=== PATIENT | female | born 1990 | race Two or more races ===

== ENCOUNTER 2019-12-23 21:50 | Inpatient (IN) | payer BC ==
[2019-12-23] MEDS ORDERED: DEXTROSE 5%-LACTATED RINGERS 1,000 ML IV SCH (22:45)
[2019-12-24] MEDS ORDERED: PROMETHAZINE HCL 25 MG/1 ML VIAL ONE (00:51)
[2019-12-24] MEDS ORDERED: BUTORPHANOL TARTRATE 1 MG/ML VIAL ONE ×2 (00:51)
[2019-12-24] MEDS ORDERED: BUTORPHANOL TARTRATE 1 MG/ML VIAL IVPB ONE (01:00)
[2019-12-24] MEDS ORDERED: PROMETHAZINE HCL 25 MG/1 ML VIAL IVPB ONE (01:00)
[2019-12-24 01:09] LABS: BASO % 0.3 % (0-2.0); EOS % 0.4 % (0-4.5); HEMATOCRIT 37.3 % (32.4-45.2); HEMOGLOBIN 12.6 GM/dL (10.7-15.3); LYMPH % 13.4 % (8-40); MCH 29.2 pg (25.7-33.7); MCHC 33.8 g/dl (32.0-36.0); MEAN CELL VOLUME 86.5 fl (80-96); MEAN PLT VOLUME 7.8 fl (7.5-11.1); MONO % 9.1 % (3.8-10.2); NEUT % 76.8 % (42.8-82.8); PLATELET COUNT 286 K/MM3 (134-434); RBC 4.32 M/mm3 (3.60-5.2); RDW 13.9 % (11.6-15.6); WHITE BLOOD COUNT 15.9 K/mm3 (4.0-10.0)
[2019-12-24 01:23] LABS: BLOOD UREA NITROGEN 7.2 mg/dL (7-18); CALCIUM 8.8 mg/dL (8.5-10.1); CREATININE 0.5 mg/dL (0.55-1.3)
[2019-12-24 01:26] LABS: INR 0.94 (0.83-1.09); PROTHROMBIN TIME (PATIENT) 11.1 SEC (9.7-13.0)
[2019-12-24 01:29] LABS: ACTIVATED PTT 26.9 SECONDS (25.2-36.5)
[2019-12-24 01:56] VITALS: BMI 28.1
[2019-12-24] MEDS ORDERED: ELECTROLYTE-148 SOLN 500 ML IV ONE (03:53)
[2019-12-24] MEDS ORDERED: CITRIC ACID/SODIUM CITRATE 30 ML UNIT-DOSE CUP PO ONE ×2 (03:53)
--- NOTE | 2019-12-24 04:01 | HP ---
Past Medical History - Admission Chief Complaint: Labor pain History of Present Illness: 29 yo @ 37.4 weeks gestation, EDC 01/09/20, presents to L&D c/o labor pain. She had one prior in [facility] but there is no scar documentation. She was initially scheduled for repeat on 01/03/20. Decision made for admission because of contractions pain. Upon admission she was 2cm dilated. She's pre op for repeat . History Source: Patient Limitations to Obtaining History: No Limitations - Past Medical History ...: 4 ...Para: 1 ...Term: 1 ...: 0 ...Spon : 0 ...Induced : 2 ...Multiple Gestation: 0 ...LMP: 04/04/19 ...EDC by Anjali: 01/09/20 - Past Surgical History Past Surgical History: Yes: Hx Myomectomy: No Hx Transabdominal Cerclage: No - Smoking History Smoking history: Never smoked Have you smoked in the past 12 months: No - Alcohol/Substance Use Hx Alcohol Use: No - Social History Usual Living Arrangement: Yes: With Spouse History of Recent Travel: No Home Medications - Allergies Allergies/Adverse Reactions: Allergies Allergy/AdvReac Type Severity Reaction Status Date / Time No Known Allergies Allergy Verified 11/16/19 13:39 - Home Medications Home Medications: Ambulatory Orders Clotrimazole [Antifungal] 14 gm TP PCHS #1 cream..g. 11/16/19 Pnv No.95/Ferrous Fum/Folic AC [ Formula] 1 each PO DAILY 11/16/19 Family Medical History Family History: Unremarkable Review of Systems - Review of Systems Constitutional: reports: No Symptoms Eyes: reports: No Symptoms HENT: reports: No Symptoms Neck: reports: No Symptoms Cardiovascular: reports: No Symptoms Respiratory: reports: No Symptoms Gastrointestinal: reports: No Symptoms Genitourinary: reports: No Symptoms Breasts: reports: No Symptoms Reported Musculoskeletal: reports: No Symptoms Integumentary: reports: No Symptoms Neurological: reports: No Symptoms Endocrine: reports: No Symptoms Psychiatric: reports: No Symptoms Pain Intensity: 4 Physical Exam - Maternity Vital Signs: Vital Signs Temperature 98.2 F 12/24/19 01:00 Pulse Rate 78 12/24/19 01:00 Respiratory Rate 20 20 01:00 Blood Pressure 124/75 12/24/19 01:00 O2 Sat by Pulse Oximetry (%) Constitutional: Yes: Well Nourished Eyes: Yes: Conjunctiva Clear HENT: Yes: Atraumatic Neck: Yes: Supple Cardiovascular: Yes: Regular Rate and Rhythm Lungs: Clear to auscultation Breast(s): Yes: WNL - Abdominal Exam/OB Number of Fetuses: Single Presentation: Vertex Contractions: Yes Regularity: Regular Intensity: Mild/Mod - Vaginal Exam/OB Dilatation (cm): 2 Effacement (%): 80 Amniotic Membrane Status: Intact Presentation: Vertex/Position Station: -2 - Physical Exam Musculoskeletal: Yes: WNL Extremities: Yes: WNL Integumentary: Yes: WNL ...Motor Strength: WNL Psychiatric: Yes: Alert, Oriented - Labs Lab Results: CBC, BMP 12/24/19 00:30 12/24/19 00:30 Problem List - Problems (1) 37 weeks gestation of Problems reviewed: Yes Code(s): Z3A.37 - 37 WEEKS GESTATION OF (2) Previous section complicating , antepartum condition or complication Problems reviewed: Yes Code(s): O34.219 - MATERNAL CARE FOR UNSP TYPE SCAR FROM PREVIOUS DEL (3) Pain during labor Problems reviewed: Yes Code(s): O99.89 - OTH DISEASES AND CONDITIONS COMPL PREG/CHLDBRTH; R52 - PAIN, UNSPECIFIED Assessment/Plan 37 weeks gestation Previous in labor Pre op for repeat Consent signed Anesthesia to see patient
[2019-12-24] MEDS ORDERED: morphine SULFATE/PF 0.5 MG/ML (2cc Syringe - QUVA) EP ONE (07:32)
[2019-12-24] MEDS ORDERED: ONDANSETRON 4 MG/2 ML VIAL IVPUSH PRN (07:32)
[2019-12-24] MEDS ORDERED: ceFAZolin SODIUM 1 GM VIAL ONE (07:44)
[2019-12-24] MEDS ORDERED: OXYTOCIN 10 UNITS/ML VIAL ONE ×2 (08:06→08:11)
[2019-12-24] MEDS ORDERED: MIDAZOLAM HCL 2 MG/2 ML SINGLE DOSE VIAL ONE (08:07)
[2019-12-24] MEDS ORDERED: METHYLERGONOVINE MALEATE 0.2 MG/1 ML AMP IM PRN (08:50)
--- NOTE | 2019-12-24 08:53 | OP ---
Operative Note - Note: Operative Date: 12/24/19 Pre-Operative Diagnosis: Previous in labor Operation: Repeat Low Transverse Findings: Baby boy in cephallic position Post-Operative Diagnosis: Same as Pre-op Surgeon: Etta Camargo Building Rental Manager: Steven Peraza Anesthesiologist/MAINTENANCE MACHINIST: Fabian Matias Anesthesia: Spinal Specimens Removed: Placenta Estimated Blood Loss (mls): 600
[2019-12-24] MEDS: IBUPROFEN 800 MG/8 ML IJ IVPB PRN ×2 (10:00→18:10)
[2019-12-24] MEDS: OXYTOCIN 20 UNITS in 0.9% NS 20 UNIT/1,000 ML INFUS.BAG IV SCH (10:00)
[2019-12-24] MEDS: PRENATAL VITAMINS W/ FOLIC ACID TABLET (FP) PO SCH (10:20)
[2019-12-24] MEDS: FERROUS SO4 325 MG TABLET (FP) PO SCH ×2 (10:21→22:32)
[2019-12-25] MEDS: IBUPROFEN 800 MG/8 ML IJ IVPB PRN (04:35)
[2019-12-25] MEDS ORDERED: BISACODYL 10 MG SUPP.RECT RC PRN (08:50)
--- NOTE | 2019-12-25 09:25 | PN ---
Progress Note (short form) - Note Progress Note: POD1 s/p csection with epidural and DM. Pt is doing well - able to ambulate, no [place], no back pain, pain is well controlled. No anesthetic issues/ complications noted.
[2019-12-25] MEDS ORDERED: DIPHTH,PERTUSS(ACELL),TET 0.5 ML DISP.SYRIN IM ONE (10:00)
[2019-12-25] MEDS: PRENATAL VITAMINS W/ FOLIC ACID TABLET (FP) PO SCH (10:01)
[2019-12-25] MEDS: FERROUS SO4 325 MG TABLET (FP) PO SCH ×2 (10:01→21:06)
[2019-12-25 10:48] LABS: BASO % 0.3 % (0-2.0); EOS % 0.4 % (0-4.5); HEMATOCRIT 36.3 % (32.4-45.2); HEMOGLOBIN 12.2 GM/dL (10.7-15.3); LYMPH % 11.2 % (8-40); MCH 29.1 pg (25.7-33.7); MCHC 33.7 g/dl (32.0-36.0); MEAN CELL VOLUME 86.2 fl (80-96); MEAN PLT VOLUME 7.6 fl (7.5-11.1); MONO % 7.7 % (3.8-10.2); NEUT % 80.4 % (42.8-82.8); PLATELET COUNT 279 K/MM3 (134-434); RBC 4.21 M/mm3 (3.60-5.2); WHITE BLOOD COUNT 15.3 K/mm3 (4.0-10.0)
[2019-12-25] MEDS: SIMETHICONE 80 MG TAB.CHEW (FP) PO PRN ×3 (12:14→23:03)
[2019-12-25] MEDS: oxyCODONE HCL 5 MG TABLET PO PRN ×3 (12:14→23:03)
[2019-12-25] MEDS: IBUPROFEN 600 MG TABLET (FP) PO PRN ×3 (12:16→23:03)
[2019-12-25] MEDS: OXYTOCIN 20 UNITS in 0.9% NS 20 UNIT/1,000 ML INFUS.BAG IV SCH (19:25)
--- NOTE | 2019-12-25 19:35 | PN ---
Post Progress Note - Subjective Subjective: 29 yo Para 2 status post repeat , seen and evaluated. Doing well Post Day: 1 Type of Delivery: Repeat C/S Vital Signs: Vital Signs Temperature 98.5 F 12/25/19 09:33 Pulse Rate 96 H 12/25/19 09:33 Respiratory Rate 20 12/25/19 09:33 Blood Pressure 117/76 12/25/19 09:33 O2 Sat by Pulse Oximetry (%) 100 12/24/19 10:00 Breast Exam: Yes: Soft Uterus: Yes: Fundus Firm Incision: Yes: Dressing dry and intact Abdomen/GI: Yes: Abdomen soft, Tolerating PO Lochia: Yes: Rubra Lochia, amount: Small Extremities: Yes: Calves non-tender Activity: Ambulating - Labs Labs: CBC WBC 15.3 K/mm3 (4.0-10.0) H 12/25/19 10:02 RBC 4.21 M/mm3 (3.60-5.2) 12/25/19 10:02 Hgb 12.2 GM/dL (10.7-15.3) 12/25/19 10:02 Hct 36.3 % (32.4-45.2) 12/25/19 10:02 MCV 86.2 fl (80-96) 12/25/19 10:02 MCH 29.1 pg (25.7-33.7) 12/25/19 10:02 MCHC 33.7 g/dl (32.0-36.0) 12/25/19 10:02 RDW 14.0 % (11.6-15.6) 12/25/19 10:02 Plt Count 279 K/MM3 (134-434) 12/25/19 10:02 MPV 7.6 fl (7.5-11.1) 12/25/19 10:02 Absolute Neuts (auto) 12.3 K/mm3 (1.5-8.0) H 12/25/19 10:02 Neutrophils % 80.4 % (42.8-82.8) 12/25/19 10:02 Lymphocytes % 11.2 % (8-40) 12/25/19 10:02 Monocytes % 7.7 % (3.8-10.2) 12/25/19 10:02 Eosinophils % 0.4 % (0-4.5) 12/25/19 10:02 Basophils % 0.3 % (0-2.0) 12/25/19 10:02 Nucleated RBC % 0 % (0-0) 12/25/19 10:02 Problem List - Problems (1) 37 weeks gestation of Code(s): Z3A.37 - 37 WEEKS GESTATION OF (2) Previous section complicating , antepartum condition or complication Code(s): O34.219 - MATERNAL CARE FOR UNSP TYPE SCAR FROM PREVIOUS DEL (3) Pain during labor Code(s): O99.89 - OTH DISEASES AND CONDITIONS COMPL PREG/CHLDBRTH; R52 - PAIN, UNSPECIFIED (4) Status post repeat low transverse section Code(s): Z98.891 - HISTORY OF UTERINE SCAR FROM PREVIOUS SURGERY Assessment/Plan Status post repeat Ambulation Analgesia as needed Continue routine post op care
[2019-12-25] MEDS: DOCUSATE SODIUM 100 MG CAPSULE (FP) PO SCH (21:06)
[2019-12-25] MEDS: ACETAMINOPHEN 325 MG TABLET (FP) PO PRN (23:04)
[2019-12-26] MEDS: DOCUSATE SODIUM 100 MG CAPSULE (FP) PO SCH ×3 (06:02→21:03)
[2019-12-26] MEDS: ACETAMINOPHEN 325 MG TABLET (FP) PO PRN ×2 (06:02→21:03)
[2019-12-26] MEDS: SIMETHICONE 80 MG TAB.CHEW (FP) PO PRN ×3 (06:02→21:03)
[2019-12-26] MEDS: oxyCODONE HCL 5 MG TABLET PO PRN ×3 (06:02→21:02)
[2019-12-26] MEDS: IBUPROFEN 600 MG TABLET (FP) PO PRN ×3 (06:02→21:03)
[2019-12-26] MEDS: FERROUS SO4 325 MG TABLET (FP) PO SCH ×2 (09:18→21:03)
[2019-12-26] MEDS: PRENATAL VITAMINS W/ FOLIC ACID TABLET (FP) PO SCH (09:18)
[2019-12-27] MEDS: SIMETHICONE 80 MG TAB.CHEW (FP) PO PRN ×2 (04:59→21:38)
[2019-12-27] MEDS: IBUPROFEN 600 MG TABLET (FP) PO PRN ×3 (04:59→21:37)
[2019-12-27] MEDS: oxyCODONE HCL 5 MG TABLET PO PRN (04:59)
[2019-12-27] MEDS: DOCUSATE SODIUM 100 MG CAPSULE (FP) PO SCH ×3 (05:00→21:37)
[2019-12-27] MEDS: ACETAMINOPHEN 325 MG TABLET (FP) PO PRN ×3 (05:00→21:38)
[2019-12-27 09:15] LABS: BASO % 0.5 % (0-2.0); HEMATOCRIT 37.3 % (32.4-45.2); HEMOGLOBIN 12.5 GM/dL (10.7-15.3); LYMPH % 19.4 % (8-40); MCH 29.3 pg (25.7-33.7); MCHC 33.5 g/dl (32.0-36.0); MEAN CELL VOLUME 87.5 fl (80-96); MEAN PLT VOLUME 7.6 fl (7.5-11.1); MONO % 9.5 % (3.8-10.2); NEUT % 68.6 % (42.8-82.8); PLATELET COUNT 329 K/MM3 (134-434); RBC 4.26 M/mm3 (3.60-5.2); RDW 13.9 % (11.6-15.6); WHITE BLOOD COUNT 10.7 K/mm3 (4.0-10.0)
[2019-12-27] MEDS: FERROUS SO4 325 MG TABLET (FP) PO SCH ×2 (11:06→21:37)
[2019-12-27] MEDS: PRENATAL VITAMINS W/ FOLIC ACID TABLET (FP) PO SCH (11:08)
--- NOTE | 2019-12-27 15:13 | PATH ---
Surgical Pathology Report Patient Name: KIERAN ISAAC [facility]. Rec. #: [id number] /Age/Gender: 1990 (Age: 29) / F Account: [id number] Location: [facility] OBS/HOG TENDER Taken: 12/24/2019 Received: 12/24/2019 Reported: 12/27/2019 Physicians: Etta Camargo M.D. Specimen(s) Received PLACENTA Clinical History , 37.4 weeks in labor Final Diagnosis PLACENTA, SECTION: 413 G THIRD TRIMESTER PLACENTA WITH TRIVASCULAR UMBILICAL CORD, PLACENTAL MEMBRANES WITH FOCAL MILD ACUTE CHORIOAMNIONITIS, AND MECONIUM LADEN MACROPHAGES. Electronically Signed Estrella Esp[place] M.D. Gross Description The specimen is received fresh labeled placenta and is a 413 gram, 22.5 x 17.5 x 2.2 cm. placenta with attached membranes and umbilical cord. The attached membranes are cornejo green, meconium stained, translucent with focal opacities and insert marginally. The umbilical cord measures 36 cm. in length and averages 1.1 cm. in diameter. The cord inserts eccentrically, 5 cm. to the nearest margin. No true knots or strictures are identified. Cut surface of the umbilical cord reveals 3 vessels. The surface is ley green, meconium stained with moderate fibrin deposition and appropriate caliber vessels. The maternal surface is red-brown with focal defects. Sectioning reveals red-brown, spongy parenchyma. No lesions are identified. Service Loss Control Consultant sections are submitted in three cassettes as follows: 1- membrane rolls and umbilical cord; 2-3- full thickness sections of placenta. /12/24/2019 saudi/12/24/2019
--- NOTE | 2019-12-27 15:37 | PN ---
Post Progress Note - Subjective Subjective: 29 yo Para 2, status post repeat , seen and evaluated. Doing well. Post Day: 3 Type of Delivery: Repeat C/S Vital Signs: Vital Signs Temperature 98.5 F 12/26/19 22:00 Pulse Rate 97 H 12/26/19 22:00 Respiratory Rate 18 12/26/19 22:00 Blood Pressure 110/63 12/26/19 22:00 O2 Sat by Pulse Oximetry (%) 100 12/24/19 10:00 Breast Exam: Yes: Soft Uterus: Yes: Fundus Firm Incision: Yes: Sutures intact Abdomen/GI: Yes: Abdomen soft Lochia: Yes: Rubra Lochia, amount: Small Extremities: Yes: Calves non-tender Activity: Ambulating - Labs Labs: CBC WBC 10.7 K/mm3 (4.0-10.0) H 12/27/19 07:33 RBC 4.26 M/mm3 (3.60-5.2) 12/27/19 07:33 Hgb 12.5 GM/dL (10.7-15.3) 12/27/19 07:33 Hct 37.3 % (32.4-45.2) 12/27/19 07:33 MCV 87.5 fl (80-96) 12/27/19 07:33 MCH 29.3 pg (25.7-33.7) 12/27/19 07:33 MCHC 33.5 g/dl (32.0-36.0) 12/27/19 07:33 RDW 13.9 % (11.6-15.6) 12/27/19 07:33 Plt Count 329 K/MM3 (134-434) 12/27/19 07:33 MPV 7.6 fl (7.5-11.1) 12/27/19 07:33 Absolute Neuts (auto) 7.3 K/mm3 (1.5-8.0) 12/27/19 07:33 Neutrophils % 68.6 % (42.8-82.8) 12/27/19 07:33 Lymphocytes % 19.4 % (8-40) D 12/27/19 07:33 Monocytes % 9.5 % (3.8-10.2) 12/27/19 07:33 Eosinophils % 2.0 % (0-4.5) D 12/27/19 07:33 Basophils % 0.5 % (0-2.0) 12/27/19 07:33 Nucleated RBC % 0 % (0-0) 12/27/19 07:33 Problem List - Problems (1) 37 weeks gestation of Problems reviewed: Yes Code(s): Z3A.37 - 37 WEEKS GESTATION OF (2) Previous section complicating , antepartum condition or complication Problems reviewed: Yes Code(s): O34.219 - MATERNAL CARE FOR UNSP TYPE SCAR FROM PREVIOUS DEL (3) Pain during labor Problems reviewed: Yes Code(s): O99.89 - OTH DISEASES AND CONDITIONS COMPL PREG/CHLDBRTH; R52 - PAIN, UNSPECIFIED (4) Status post repeat low transverse section Problems reviewed: Yes Code(s): Z98.891 - HISTORY OF UTERINE SCAR FROM PREVIOUS SURGERY Assessment/Plan Status post repeat Ambulation Analgesia as needed Continue routine post op care
[2019-12-28] MEDS: DOCUSATE SODIUM 100 MG CAPSULE (FP) PO SCH (06:34)
[2019-12-28 08:04] VITALS: BP 120/75; PULSE 78; TEMP 97.8
[2019-12-28] MEDS: PRENATAL VITAMINS W/ FOLIC ACID TABLET (FP) PO SCH (09:28)
[2019-12-28] MEDS: FERROUS SO4 325 MG TABLET (FP) PO SCH (09:28)
--- NOTE | 2019-12-28 09:50 | DS ---
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 Vital Signs: Vital Signs Temperature 97.8 F 12/28/19 08:03 Pulse Rate 78 12/28/19 08:03 Respiratory Rate 20 12/28/19 08:03 Blood Pressure 120/75 12/28/19 08:03 O2 Sat by Pulse Oximetry (%) 100 12/24/19 10:00 Constitutional: Yes: No Distress Eyes: Yes: Conjunctiva Clear HENT: Yes: Atraumatic Neck: Yes: Supple Cardiovascular: Yes: Regular Rate and Rhythm Respiratory: Yes: Regular Gastrointestinal: Yes: Normal Bowel Sounds External Genitalia: Yes: Normal Vaginal Exam: Yes: Normal Breast(s): Yes: WNL Musculoskeletal: Yes: WNL Extremities: Yes: WNL Wound/Incision: Yes: Steri Strips (in place) Neurological: Yes: Alert, Oriented ...Motor Strength: WNL Psychiatric: Yes: Alert, Oriented Labs: CBC, BMP 12/27/19 07:33 12/24/19 00:30 Delivery - Delivery Type of Anesthesia: Spinal EBL (cc): 600 Delivery, Single - Stages of Labor Date 1st Stage Initiatied: 12/24/19 Time 1st Stage Initiated: 01:00 Date of Delivery: 12/24/19 Time of Delivery: 08:06 Time Placenta Delivered: 08:08 - Condition of Founding Partner/Yarn Washer Present: No Infant Gender: Male Weight: 7 lb 11 oz Position: Right, OT Total Hours ROM (Hrs/Mins): 0Hrs/3MIns - 1 Minute Total Score: 9 5 Minutes Total Score: 9 - [place] Feeding Plan Initial Plan: Elected not to breastfeed exclusively throughout hospitalization Discharge Summary Problems reviewed: Yes Reason For Visit: ADMIT LABOR Current Active Problems 37 weeks gestation of (Acute) Pain during labor (Acute) Previous section complicating , antepartum condition or complication (Acute) Status post repeat low transverse section (Acute) Procedures: Principal: Repeat Low Transverse Hospital Course: Routine post op care Health Concerns: None Plan of Treatment: Analgesia as needed Ambulation F/U with MD in 2 weeks Goals: Resume regular activities in 4 weeks Condition: Good - Instructions Diet, Activity, Other Instructions: Regular diet No driving, no lifting x 4 weeks F/U with MD in 2 weeks Disposition: HOME - Home Medications Comprehensive Discharge Medication List: Ambulatory Orders Clotrimazole [Antifungal] 14 gm TP PCHS #1 cream..g. 11/16/19 Pnv No.95/Ferrous Fum/Folic AC [ Formula] 1 each PO DAILY 11/16/19
--- NOTE | 2019-12-30 10:54 | OP ---
DATE OF OPERATION: 12/24/2019 PREOPERATIVE DIAGNOSES: Previous section, in labor. POSTOPERATIVE DIAGNOSES: Previous section, in labor. PROCEDURE: Repeat low transverse section. SURGEON: Etta Camargo MD PLATING EQUIPMENT TENDER: MORA Laird ANESTHESIA: Spinal. COMPLICATIONS: None. ESTIMATED BLOOD LOSS: 600 mL. PROCEDURE: Patient was taken to the operating room where spinal anesthesia was administered. Patient was then prepped and draped in proper sterile fashion. A Pfannenstiel skin incision was made and carried down to the underlying layer of fascia. The fascia was incised in the midline and extended laterally. The superior aspect of the fascial incision was then grasped between Loy clamps, elevated and the rectus muscle dissected out bluntly. Attention was then turned to the inferior aspect of the fascial incision which in a similar fashion was then grasped between Loy clamps, elevated and the rectus muscle dissected out bluntly. The rectus muscle was then in the midline and the peritoneum identified and entered sharply with the Metzenbaum scissors. The peritoneal incision was extended superiorly and anteriorly with good visualization of the bladder. Then the vesicouterine peritoneum was then grasped with a pickup and entered sharply with Metzenbaum scissors. The lower uterine segment was incised with a 10 blade. This incision was extended laterally and the head delivered atraumatically. Nose and mouth were suctioned and the cord clamped and cut. The was handed to the waiting stopper maker. The placenta was removed manually. The uterus was exteriorized and cleared of all clots and debris and the uterine incision was repaired using 0 Biosyn in a running locked fashion. A 2nd layer of the same suture was used as the means to provide excellent hemostasis. Then the pelvis was completely irrigated. The uterus was returned to the abdomen. The peritoneum was closed using 2-0 Biosyn. The fascia was reapproximated using 0 Vicryl in a running fashion. The skin was closed in subcuticular fashion using 2-0 Vicryl. Patient tolerated procedure well. Patient was then taken to PACU in stable condition. PATHOLOGY: Placenta. Neel [id number]
== END 2019-12-28 11:45 | disposition home or self-care (01) | DRG 786 ==
LOC: JDEL 21:50 → JLDR 12-24 00:20 → J3W 12-24 10:57
PROVIDERS: ADMIT Obstetrics & Gynecology; ATTEND Obstetrics & Gynecology
PROC: 10D00Z1 Extraction of Products of Conception, Low, Open Approach (ICD-10-PCS; principal; 2019-12-24)
PROC: 3E0334Z Introduction of Serum, Toxoid and Vaccine into Peripheral Vein, Percutaneous Approach (ICD-10-PCS; 2019-12-24)
DX: O34.211 Maternal care for low transverse scar from previous cesarean delivery (principal); O41.1230 Chorioamnionitis, third trimester, not applicable or unspecified; N85.8 Other specified noninflammatory disorders of uterus; Z3A.37 37 weeks gestation of pregnancy; Z29.13 Encounter for prophylactic Rho(D) immune globulin; Z37.0 Single live birth
CPT/HCPCS: 36415; 59025; 80048; 85025; 85461; 85610; 85730; 86593; 86850; 86870; 86900; 86901; 86902; 86999; 87389; 88307-TC; 90715

== ENCOUNTER 2025-06-24 21:37 | Emergency (ER) | payer BC ==
[2025-06-24 21:44] VITALS: BMI 24.3
[2025-06-24 22:35] LABS: ABSOLUTE IMMATURE GRANULOCYTES 0.11 x10^3/uL (0.0-0.031); BASOPHILS # 0.06 x10^3/uL (0.01-0.08); EOSINOPHIL % 1.9 % (0.7-5.8); EOSINOPHILS # 0.30 x10^3/uL (0.04-0.36); MCHC 32.8 g/dl (32.2-35.5); MEAN CELL VOLUME 86.9 fl (79.4-94.8); MEAN PLT VOLUME 9.3 fl (9.4-12.3); MONOCYTE # 1.11 x10^3/uL (0.24-0.86); MONOCYTE % 7.1 % (4.7-12.5); RDW 12.9 % (12.1-16.8)
[2025-06-24 22:52] LABS: CO2 28.0 mmol/L (21-32); GLUCOSE,RANDOM 99.0 mg/dL (74-106)
[2025-06-24 22:55] LABS: CREATININE 0.6 mg/dL (0.55-1.3); SGOT/AST 9.0 U/L (15-37); SGPT/ALT 20.0 U/L (13-61)
[2025-06-24 22:56] LABS: HCG,QUALITATIVE URINE Positive
[2025-06-24 22:57] LABS: TOT PROT 7.5 g/dl (6.4-8.2)
[2025-06-24 22:58] LABS: ALK PHOS 73.0 U/L (45-117); EPI CELLS 8 /uL (0-25.1); HYALINE CASTS 0 /uL (0-3.1); URINE APPEARANCE CLEAR; URINE BACTERIA 162 /uL (0-1359); URINE BILIRUBIN NEGATIVE (NEGATIVE); URINE COLOR YELLOW; URINE GLUCOSE (UA) NEGATIVE (NEGATIVE); URINE KETONE NEGATIVE (NEGATIVE); URINE LEUK ESTERASE 3+ (NEGATIVE); URINE NITRITE NEGATIVE (NEGATIVE); URINE PROTEIN NEGATIVE (NEGATIVE); URINE UROBILINOGEN 0.2 mg/dL (0.2-1.0); URINE WBC 20 /uL (0-25.8)
[2025-06-24 23:22] LABS: URINE RBC 19.8 /uL (0-23.9)
[2025-06-25 01:36] VITALS: RESP 16
[2025-06-25] MEDS: CEFTRIAXONE 1 GM in DEXTROSE 5%-WATER - 100 ML IVPB ONE (01:36)
[2025-06-25 02:08] VITALS: TEMP 98.2
[2025-06-25] MEDS: SODIUM CHLORIDE 0.9% 500 ML INFUS.BAG IV ONE (02:12)
[2025-06-25] MEDS ORDERED: CEPHALEXIN MONOHYDRATE 250 MG CAPSULE (FP) ONE (02:15)
[2025-06-25] MEDS: RHO(D) IMMUNE GLOBULIN 1,500 UNIT DISP.SYRIN IM ONE (02:19)
[2025-06-25] MEDS: CEPHALEXIN MONOHYDRATE 250 MG CAPSULE (FP) PO ONE (02:26)
[2025-06-25 02:41] VITALS: BP 117/78; PULSE 86
== END 2025-06-25 02:42 | disposition home or self-care (01) ==
LOC: JER 21:37
PROC: 3E023GC Introduction of Other Therapeutic Substance into Muscle, Percutaneous Approach (ICD-10-PCS; principal; 2025-06-25)
DX: O26.851 Spotting complicating pregnancy, first trimester (principal); Z3A.01 Less than 8 weeks gestation of pregnancy
CPT/HCPCS: 36415; 76817-TC; 80053; 81003; 84702; 84703; 85025; 86850; 86870; 86880; 86900; 86901; 86902; 87086; 96372; 99285-25; J2790